=== PATIENT | female | born 1985 | race Caucasian/White ===

== ENCOUNTER 2020-12-27 14:14 | Emergency (ER) | payer OTHER ==
[2020-12-27 17:14] LABS: BASOPHIL 0.8 % (0-2); EOSINOPHIL 3.2 % (0-5); HCT 37.9 % (37.0-47.0); HGB 13.3 g/dl (12.5-16.0); LYMPHOCYTE 37.5 % (15-48); MCH 33.2 pg (25.0-31.0); MCHC 35.1 g/dL (32.0-36.0); MCV 94.5 fL (78.0-100.0); MONOCYTE 6.6 % (0-12); MPV 10.5 fL (6.0-9.5); NEUTROPHIL 51.9 % (41-80); NRBC 0; PLT 212 K/uL (150-400); RBC 4.01 M/uL (4.20-5.40); RDW 11.7 % (11.5-14.0); WBC 5.3 K/uL (4.0-10.5)
[2020-12-27 17:33] LABS: ALBUMIN 4.2 g/dL (3.4-5.0); ALKALINE PHOSHATASE 41 U/L (46-116); ALT <6 U/L (14-59); AST 11 U/L (15-37); BILIRUBIN - TOTAL 0.6 mg/dL (0.2-1.0); BUN 10 mg/dL (7-18); BUN/CREAT RATIO (CALC) 18.5 RATIO; CHLORIDE 108 mmol/L (98-107); CO2 (BICARBONATE) 30 mmol/L (21-32); CREATININE 0.54 mg/dL (0.51-0.95); GLOBULIN (CALCULATION) 2.6 g/dL; GLUCOSE 90 mg/dL (74-106); POTASSIUM 3.7 mmol/L (3.5-5.1); TOTAL PROTEIN 6.8 g/dL (6.4-8.2)
[2020-12-27 17:51] LABS: BILIRUBIN NEGATIVE (NEGATIVE); BLOOD 1+ Ery/uL (NEGATIVE); CLARITY CLEAR (CLEAR); COLOR YELLOW (YELLOW); GLUCOSE (U) NORMAL (NORMAL); LEUKOCYTES NEGATIVE Leu/uL (NEGATIVE); NITRITE NEGATIVE (NEGATIVE); PROTEIN NEGATIVE (NEGATIVE); SPECIFIC GRAVITY 1.025 (1.001-1.030)
[2020-12-27 17:56] LABS: BACTERIA TRACE; SQUAMOUS EPITHELIAL CELLS RARE
[2020-12-27] MEDS ORDERED: NORCO 5-325 TA1 EACH PO (19:15)
[2020-12-27] MEDS ORDERED: NAPROXEN500 MG PO (19:15)
[2020-12-27] MEDS ORDERED: PREDNISONE 20MG20 MG PO (19:15)
[2020-12-27] MEDS ORDERED: CYCLOBENZAPRINE10 MG PO (19:15)
== END 2020-12-27 19:35 | disposition home or self-care (01) ==
LOC: FER 14:14
PROVIDERS: Nurse Practitioner Family
DX: M54.5 Low back pain (principal); G89.29 Other chronic pain
CPT/HCPCS: 36415; 72131; 80053; 81001; 85025; J1100; J1885; J2270; J2405; J7030